=== PATIENT | male | born 1975 | race Caucasian/White ===

== ENCOUNTER 2020-03-04 11:07 | Emergency (ER) | payer OTHER, SELFPAY ==
[2020-03-04 11:15] VITALS: BP 143/83; PULSE 101; RESP 16; TEMP 36.4; O2SAT 98
--- NOTE | 2020-03-04 11:29 | ED.DENTAL ---
HPI - Dental/Oral General Chief complaint: Dental/Oral Stated complaint: tooth pain/ight side facial swelling Source: patient and RN notes reviewed Mode of arrival: ambulatory History of Present Illness HPI Narrative: This is a 44-year-old white male who presented to urgent care today with a swollen right upper gums and cheek. According to patient he woke up this morning his left cheek and gum was swollen. He notified his dentist who instructed him to come to urgent care to get antibiotics before treatment. Patient does have pain with touch to the left gum. He did not take anything at home to resolve his pain. The patient denies SOB, CP, palpitation, extremity numbness, lightheadedness, dizziness, constipation, diarrhea, chills, or fever. He will be given antibiotic also pain medication and instructions to follow-up with his dentist Teeth map: 1. Swollen gums and cheek Related Data Allergies Allergy/AdvReac Type Severity Reaction Status Date / Time No Known Allergies Allergy Unverified 03/30/16 13:09 Review of Systems Review of Systems: All systems reviewed & are unremarkable except as noted in HPI and below (10 point system review) [facility] Social History Social History Gender identity (if verbalized by the patient): Male Exam Narrative: Exam Narrative: GENERAL: This is a well-nourished, well-developed patient, in no apparent distress. HEAD: normocephalic, atraumatic. EYES: PERRL. Sclera clear/white. Vision is grossly intact. EARS: External ears normal, auditory canals clear and without drainage, TMs normal without perforation. Hearing grossly intact. NOSE: External nose normal with no obvious nasal discharge, nares without redness, no rhinorrhea. THROAT: Mucous membranes moist, posterior pharynx clear. Swollen gums to the left side beneath canine 3 and 4 does not appear to be any outer abscess probably beneath the gumline NECK: Neck supple, non-tender without lymphadenopathy, masses or thyromegaly. CARDIOVASCULAR: Regular rate and rhythm without murmurs, gallops, or rubs. RESPIRATORY: Clear to auscultation. Breath sounds equal bilaterally. No wheezes, rales, or rhonchi. GASTROINTESTINAL: Abdomen soft, non-tender, nondistended. Bowel sounds are active. No hepato-splenomegaly, or palpable masses. No guarding. SKIN: warm, intact with no suspicious lesions or rash, good texture and turgor. NEURO: awake, alert, and oriented to person, place and time. There were no obvious focal neurologic abnormalities. Steady gait EXTREMITIES: Normal range of motion. No edema. No calf tenderness. Negative Homans sign bilaterally. BACK: Nontender without deformity or crepitance. No flank tenderness. Course Course Emergency Course: Paper will discharge with antibiotics pain medication and instructions to go to his dentist Vital Signs Vital signs: Vital Signs Temperature 97.5 F L 03/04/20 11:15 Pulse Rate 101 H 03/04/20 11:15 Respiratory Rate 16 03/04/20 11:15 Blood Pressure 143/83 H 03/04/20 11:15 Pulse Oximetry 98 03/04/20 11:15 Temperature 97.5 F L 03/04/20 11:15 Pulse Rate 101 H 03/04/20 11:15 Respiratory Rate 16 03/04/20 11:15 Blood Pressure 143/83 H 03/04/20 11:15 Pulse Oximetry 98 03/04/20 11:15 MDM - Dental/Oral Differential Diagnosis Differential diagnosis: Likely gingival abscess, dental caries, toothache and dental abscess Discharge Plan Discharge Clinical Impression: Dental abscess Patient Disposition: Home, Self-Care Condition: Stable Instructions: Antibiotic Form, Dental Abscess (ED) Additional Instructions: warm compresses to the area 20-30 minutes 4-6 times a day and as needed elevate the area if possible antibiotic as directed--finish the medicine tylenol/ibuprofen for pain Use the medication as provided for severe pain--cautiion drowsiness--do not drink alcohol or drive with these medications. caution each tablet contains 325 mg of Tylenol--the maximum dose of
== END 2020-03-04 11:32 | disposition home or self-care (01) ==
PROVIDERS: Emergency Provider Nurse Practitioner
DX: K04.7 Periapical abscess without sinus (principal)
CPT/HCPCS: 99213; G0463

== ENCOUNTER 2020-11-25 12:11 | Emergency (ER) | payer OTHER, SELFPAY ==
[2020-11-25 12:20] VITALS: BP 130/87; PULSE 77; RESP 18; TEMP 36.5; O2SAT 97
--- NOTE | 2020-11-25 12:33 | ED.DENTAL ---
HPI - Dental/Oral General Chief complaint: Dental/Oral Stated complaint: tooth ache Source: patient and RN notes reviewed Mode of arrival: ambulatory History of Present Illness HPI Narrative: This is a 85-year-old male who presented to urgent care with complaints of tooth pain patient has a fracture decay #[address] He has a scheduled appointment with a dentist in approximately 2 to 3 weeks. He will be prescribed antibiotic and pain medication. The patient denies SOB, CP, palpitation, extremity numbness, lightheadedness, dizziness, constipation, diarrhea, chills, or fever. Teeth map: 1. Decayed fractured tooth Related Data Allergies Allergy/AdvReac Type Severity Reaction Status Date / Time No Known Allergies Allergy Unverified 03/30/16 13:09 Review of Systems Review of Systems: A 14 organ system Review of Systems was performed and pertinent positives included in the HPI, otherwise remaining ROS is negative. PMFSH Social History Social History Gender identity (if verbalized by the patient): Male Exam Narrative: GENERAL: This is a well-nourished, well-developed patient, in no apparent distress. HEAD: normocephalic, atraumatic. EYES: PERRL. Sclera clear/white. Vision is grossly intact. #32 decayed fractured tooth EARS: External ears normal, auditory canals clear and without drainage, TMs normal without perforation. Hearing grossly intact. NOSE: External nose normal with no obvious nasal discharge, nares without redness, no rhinorrhea. THROAT: Mucous membranes moist, posterior pharynx clear. NECK: Neck supple, non-tender without lymphadenopathy, masses or thyromegaly. CARDIOVASCULAR: Regular rate and rhythm without murmurs, gallops, or rubs. RESPIRATORY: Clear to auscultation. Breath sounds equal bilaterally. No wheezes, rales, or rhonchi. GASTROINTESTINAL: Abdomen soft, non-tender, nondistended. Bowel sounds are active. No hepato-splenomegaly, or palpable masses. No guarding. SKIN: warm, intact with no suspicious lesions or rash, good texture and turgor. NEURO: awake, alert, and oriented to person, place and time. There were no obvious focal neurologic abnormalities. Steady gait EXTREMITIES: Normal range of motion. No edema. No calf tenderness. Negative Homans sign bilaterally. BACK: Nontender without deformity or crepitance. No flank tenderness. Course Course Emergency Course: Patient will be prescribed amoxicillin x10 days and Glendo Vital Signs Vital signs: Vital Signs Temperature 97.7 F 11/25/20 12:20 Pulse Rate 77 11/25/20 12:20 Respiratory Rate 18 11/25/20 12:20 Blood Pressure 130/87 11/25/20 12:20 Pulse Oximetry 97 11/25/20 12:20 Temperature 97.7 F 11/25/20 12:20 Pulse Rate 77 11/25/20 12:20 Respiratory Rate 18 11/25/20 12:20 Blood Pressure 130/87 11/25/20 12:20 Pulse Oximetry 97 11/25/20 12:20 [facility] - Dental/Oral Differential Diagnosis Differential diagnosis: Likely dental caries, toothache, dental abscess and fracture of tooth Discharge Plan Discharge Clinical Impression: Dental decay Patient Disposition: Home, Self-Care Condition: Stable Instructions: Antibiotic Form, Toothache (ED) Additional Instructions: Avoid temperature extremes May apply heat or ice to the face Gentle brushing and flossing Antibiotic as directed Tylenol for lesser pain Use ibuprofen regularly Use the medication as provided for severe pain--caution each tablet contains 325 mg of Tylenol--the maximum dose of Tylenol is 4000 mg in 24 hours. This medication may cause constipation consider starting a laxative at this time Follow-up with the dentist as soon as possible--see the list provided Prescriptions: New amoxicillin 875 mg tablet 875 mg PO Q12H 10 Days Qty: 20 RF: 0 hydrocodone-acetaminophen 10-325 mg tablet 1 tablet PO Q6H PRN (Reason: pain) Qty: 15 RF: 0 Follow-up/Referrals: UNKNOWN,DOCTOR [Primary Care Provider] - Time of
== END 2020-11-25 12:37 | disposition home or self-care (01) ==
PROVIDERS: Emergency Provider Nurse Practitioner
DX: K02.9 Dental caries, unspecified (principal)
CPT/HCPCS: 99213; G0463

== ENCOUNTER 2021-02-04 14:13 | Emergency (ER) | payer OTHER, SELFPAY ==
[2021-02-04 14:20] VITALS: BP 150/86; PULSE 98; RESP 20; TEMP 37.3; O2SAT 98
[2021-02-04 14:22] VITALS: BP 150/86; PULSE 98; RESP 20; TEMP 37.3; O2SAT 98
--- NOTE | 2021-02-04 14:24 | ED.DENTAL ---
HPI - Dental/Oral General Chief complaint: Dental/Oral Stated complaint: tooth pain Source: patient Mode of arrival: ambulatory Limitations: no limitations History of Present Illness HPI Narrative: Patient is a 45-year-old male who presents complaining of right lower dental pain. He was seen approximately 2 months ago for same. He reports he has an appointment in February to have tooth extracted. He reports pain x2 days. Reports taking ibuprofen at home with little relief. He denies all other complaints at this time. Denies significant medical history. Related Data Allergies Allergy/AdvReac Type Severity Reaction Status Date / Time No Known Allergies Allergy Unverified 02/04/21 14:20 Review of Systems Review of Systems: CONSTITUTIONAL: Denies fever, chills, or sweats. EYES: Denies visual changes, redness, or discharge. ENT: Denies rhinorrhea, congestion, sore throat, or otalgia. Right lower dental pain CARDIOVASCULAR: Denies chest pain, palpitations, or edema. RESPIRATORY: Denies cough or dyspnea. GASTROINTESTINAL: Denies abdominal pain, nausea, vomiting, or diarrhea. GENITOURINARY: Denies dysuria or hematuria. SKIN: Denies rash or itching. MUSCULOSKELETAL: Denies back pain, joint pain, or myalgia. NEUROLOGIC: Denies headache, numbness, dizziness, or weakness. PSYCHIATRIC: Denies anxiety or depression. [facility] Social History Social History (Updated 02/04/21 @ 14:35 by GIANNI Peter) Smoking status: Current every day smoker Alcohol intake: current Alcohol use details: Occasional Gender identity (if verbalized by the patient): Male Comments At the time of signature, I have reviewed and agree with nursing past medical, surgical, social, and family history unless otherwise noted. Please see nursing chart for further information. There is no relevant family history pertinent to the presenting complaint. Exam Narrative: GENERAL: Well-appearing, well-nourished, and in no acute distress. HEAD: Normocephalic, atraumatic. EYES: EOMI. No redness or drainage. Conjunctiva are normal. ENT: Mucous membranes pink and moist. Multiple dental fractures, caries and missing teeth. NECK: AROM. Supple. No lymphadenopathy. CHEST: No respiratory distress. Clear to auscultation. HEART: Regular rate and rhythm. No murmur appreciated. Normal peripheral pulses. GI: Soft, nontender without rebound, or guarding. No distention. Bowel sounds normal in all quadrants. MUSCULOSKELETAL: No bony tenderness. EXTREMITIES: Normal range of motion. No edema. SKIN: Warm, dry, no rash. NEURO: No focal deficits. Alert and oriented x3. Gait steady. PSYCH: Normal affect. No signs of depression or anxiety. Course Vital Signs Vital signs: Vital Signs Temperature 37.3 C 02/04/21 14:20 Pulse Rate 98 02/04/21 14:20 Respiratory Rate 20 02/04/21 14:20 Blood Pressure 150/86 H 02/04/21 14:20 Pulse Oximetry 98 02/04/21 14:20 Temperature 37.3 C 02/04/21 14:22 Pulse Rate 98 02/04/21 14:22 Respiratory Rate 20 02/04/21 14:22 Blood Pressure 150/86 H 02/04/21 14:22 Pulse Oximetry 98 02/04/21 14:22 Reviewed. Patient has been instructed to follow-up with his PCP within the week regarding his blood pressure. Discharge Plan Discharge Clinical Impression: Dental abscess, Toothache Patient Disposition: Home, Self-Care Condition: Stable Instructions: Antibiotic Form, Dental Abscess (ED) Additional Instructions: Take antibiotics as directed. You may take Tylenol and ibuprofen for pain. Follow-up with your dentist as scheduled. Prescriptions: New clindamycin HCl 300 mg capsule 300 mg PO Q8H 10 Days Qty: 30 RF: 0 ibuprofen 800 mg tablet 800 mg PO TID PRN (Reason: pain) Qty: 20 RF: 0 Follow-up/Referrals: UNKNOWN,DOCTOR [Primary Care Provider] - Stand Alone Forms: Work/School Release IP Time of Disposition: 14:38
== END 2021-02-04 14:42 | disposition home or self-care (01) ==
PROVIDERS: Emergency Provider Nurse Practitioner
DX: K04.7 Periapical abscess without sinus (principal); F17.200 Nicotine dependence, unspecified, uncomplicated
CPT/HCPCS: 99213; G0463

== ENCOUNTER 2022-10-22 18:33 | Emergency (ER) | payer OTHER, SELFPAY ==
[2022-10-22 18:41] VITALS: BP 136/81; PULSE 75; RESP 16; TEMP 36.4; O2SAT 98
--- NOTE | 2022-10-22 19:02 | ED.GENADULT ---
HPI - General Adult General Chief complaint: Back Pain/Injury Stated complaint: back issues Source: patient Mode of arrival: ambulatory Limitations: no limitations History of Present Illness HPI narrative: PATIENT PRESENTS REQUESTING A NOTE TO ALLOW HIM TO RETURN TO WORK TOMORROW. HE INDICATES HE WORKS AT THE [employer] AND LEFT WORK ON SUNDAY DUE TO LOW BACK SPASMS. HE HAS NOT HAD ANY SINCE THAT TIME. HE DENIES ANY LOW BACK PAIN. NO RECENT INJURY. NO PARESTHESIAS. NO URINARY SYMPTOMS. HE HAS NOT BEEN TAKING ANY MEDICATIONS FOR HIS SYMPTOMS. Related Data Allergies Allergy/AdvReac Type Severity Reaction Status Date / Time No Known Allergies Allergy Unverified 02/04/21 14:20 Review of Systems Review of Systems: CONSTITUTIONAL: DENIES FEVER, CHILLS, OR SWEATS. EYES: DENIES VISUAL CHANGES, REDNESS, OR DISCHARGE. ENT: DENIES RHINORRHEA, CONGESTION, SORE THROAT, OR OTALGIA. CARDIOVASCULAR: DENIES CHEST PAIN, PALPITATIONS, OR EDEMA. RESPIRATORY: DENIES COUGH OR DYSPNEA. GASTROINTESTINAL: DENIES ABDOMINAL PAIN, NAUSEA, VOMITING, OR DIARRHEA. GENITOURINARY: DENIES DYSURIA OR HEMATURIA. SKIN: DENIES RASH OR ITCHING. MUSCULOSKELETAL: REPORTS SPASMS IN THE LOW BACK. NEUROLOGIC: DENIES HEADACHE, NUMBNESS, DIZZINESS, OR WEAKNESS. PSYCHIATRIC: DENIES ANXIETY OR DEPRESSION. [facility] Past Medical History Medical History No pertinent past medical history Surgical History Surgical History No pertinent past surgical history Family History Family History Mother Family history non-contributory Social History Social History Smoking status: Current every day smoker Alcohol intake: current Alcohol use details: Occasional Substance use: never Gender identity (if verbalized by the patient): Male Spiritual care concerns: No Exam Narrative: GENERAL: WELL-APPEARING, WELL-NOURISHED, AND IN NO ACUTE DISTRESS. HEAD: NORMOCEPHALIC, ATRAUMATIC. EYES: PERRLA AND EOMI. ENT: NARES CLEAR, NO RHINORRHEA OR EPISTAXIS. MUCOUS MEMBRANES MOIST. OROPHARYNX WITHOUT TONSILLAR HYPERTROPHY EXUDATE OR OTHER LESIONS. BILATERAL TMS PEARLY CASTELLANOS NONBULGING NECK: SUPPLE. NO ADENOPATHY OR MASSES. NO CAROTID BRUITS OR JVD CHEST: CLEAR TO AUSCULTATION. NO RESPIRATORY DISTRESS. NO WHEEZES RALES OR RHONCHI HEART: REGULAR RATE AND RHYTHM. NO MURMUR HEARD. NORMAL PERIPHERAL PULSES. ABDOMEN: SOFT, NONTENDER, NONDISTENDED, NORMAL ACTIVE BOWEL SOUNDS. BACK: NO TENDERNESS IN MIDLINE OR PARASPINOUS MUSCLES OF LUMBAR SPINE. NO CVA TENDERNESS. EXTREMITIES: NORMAL RANGE OF MOTION. NO EDEMA. SKIN: WARM, DRY, NO RASH. NEURO: NO FOCAL DEFICITS. ALERT AND ORIENTED X3. PSYCH: NORMAL MOOD AND AFFECT. Course Course Emergency Course: THIS IS A 47-YEAR-OLD MALE WHO PRESENTED REQUESTING A NOTE TO ALLOW HIM TO RETURN TO WORK. HE IS ASYMPTOMATIC AT THE PRESENT TIME. IN FACT HE HAS NOT HAD ANY MUSCLE SPASMS SINCE 2 DAYS AGO. I OFFERED TO PERFORM IMAGING, WHICH HE DECLINED. I THINK THIS IS REASONABLE. I WILL GIVE HIM A SCRIPT FOR FLEXERIL IN THE EVENT THAT HE HAS SYMPTOM RECURRENCE. FOLLOW UP WITH PRIMARY PROVIDER. GO TO THE ER FOR RECURRENT WORSENING SYMPTOMS. PT IN AGREEMENT WITH PLAN OF CARE. Level of Care: Express Care Visit Vital Signs Vital signs: Vital Signs Temperature 36.4 C 10/22/22 18:41 Pulse Rate 75 10/22/22 18:41 Respiratory Rate 16 10/22/22 18:41 Blood Pressure 136/81 10/22/22 18:41 Pulse Oximetry 98 10/22/22 18:41 Oxygen Delivery Room Air 10/22/22 18:41 Temperature 36.4 C 10/22/22 18:41 Pulse Rate 75 10/22/22 18:41 Respiratory Rate 16 10/22/22 18:41 Blood Pressure 136/81 10/22/22 18:41 Pulse Oximetry 98 10/22/22 18:41 Oxygen Delivery Room Air 0
== END 2022-10-22 18:52 | disposition home or self-care (01) ==
PROVIDERS: Emergency Provider Nurse Practitioner; PCP Emergency Medicine
DX: M62.830 Muscle spasm of back (principal); F17.200 Nicotine dependence, unspecified, uncomplicated
CPT/HCPCS: 99213; G0463

== ENCOUNTER 2023-01-29 16:17 | Emergency (ER) | payer OTHER, SELFPAY ==
--- NOTE | 2023-01-29 16:22 | ED.DENTAL ---
HPI - Dental/Oral General Chief complaint: Dental/Oral Stated complaint: Dental Pain Time Seen by Provider: 01/29/23 16:22 Source: patient Mode of arrival: ambulatory Limitations: no limitations History of Present Illness HPI Narrative: Patient is a 47-year-old male that presents with right lower dental pain and swelling that worsened today. Patient has poor dentition. Patient states that since he gets antibiotics on board his dentist will pull his use. Reports significant pain in Tylenol and ibuprofen are not touching. Patient reports several dental abscesses in the past. Related Data Allergies Allergy/AdvReac Type Severity Reaction Status Date / Time No Known Allergies Allergy Verified 01/29/23 16:19 Review of Systems Review of Systems: All systems reviewed & are unremarkable except as noted in HPI and below Constitutional: Constitutional: Denies body ache(s), Denies fever(s), Denies headache(s), Denies malaise and Denies weakness Eyes: Eyes: Denies loss of vision ENT: Denies otalgia, Reports facial pain (jaw), Denies headache(s), Denies nasal discharge, Denies sinus pain and Denies sore throat Cardiovascular: Cardiovascular: Denies chest pain, Denies irregular heart rhythm and Denies dyspnea Respiratory: Respiratory: Denies dyspnea Gastrointestinal: Gastrointestinal: Denies abdominal pain, Denies melena, Denies hematochezia, Denies diarrhea, Denies nausea and Denies vomiting Musculoskeletal: Musculoskeletal: Denies back pain, Denies myalgias and Denies arthralgias Integumentary/Breasts: Skin/Breast: Denies pruritus and Denies rash Neurologic: Denies headache(s), Denies loss of vision and Denies weakness Psychiatric: Psychiatric: Reports no additional psychiatric complaints [facility] Past Medical History Medical History No pertinent past medical history Surgical History Surgical History No pertinent past surgical history Family History Family History Mother Family history non-contributory Social History Social History Smoking status: Current every day smoker Alcohol intake: current Alcohol use details: Occasional Substance use: never Gender identity (if verbalized by the patient): Male Spiritual care concerns: No Comments At time of signature, agree with nursing past medical, surgical, social and family history. There is no relevant family history pertinent to the presenting complaint. Exam Const: General: cooperative, healthy appearing, comfortable, no acute distress and well nourished Nutritional Appearance: well nourished Orientation/consciousness: patient oriented x3 Limitations: no limitations HENMT: Head: normal to inspection, normocephalic and atraumatic Ears: hearing grossly normal bilaterally, external ears normal, TM's normal bilaterally and mastoids normal bilaterally Face/Nose/Sinus: Normal external nose present, normal facial exam and face symmetric Face and sinus: normal facial exam and face symmetric Mouth: Yes Normal oral and palatal mucosa present, Yes lip normal, Yes tongue normal, Yes Normal salivary glands and ducts present and Yes moist mucous membranes Teeth and gingiva: caries and poor dentition Teeth image: 1. Broken and severely decayed. No obvious drainage noted, no obvious fluid pocket associated with tooth Eyes: General: appearance normal, both eyes and all related structures Alignment and Position: alignment normal and position normal Periorbital: periorbital findings normal Eyelids: eyelids normal Pupils: Equal, round and reactive pupils present EOM: EOMs intact bilaterally Neck: Neck: normal visual inspection, full ROM, no lymphadenopathy and supple Chest: Chest palpation & inspection: normal inspection of the chest Resp:
[2023-01-29 16:27] VITALS: BP 124/73; PULSE 98; RESP 24; TEMP 36; O2SAT 100
== END 2023-01-29 17:10 | disposition home or self-care (01) ==
PROVIDERS: Emergency Provider Nurse Practitioner Family; PCP Emergency Medicine
DX: K04.7 Periapical abscess without sinus (principal); F17.200 Nicotine dependence, unspecified, uncomplicated
CPT/HCPCS: 99213; G0463